=== PATIENT | female | born 1975 | race Caucasian/White ===

== ENCOUNTER 2016-03-06 08:40 | Emergency (ER) | payer OTHER ==
[2016-03-06 09:36] VITALS: TEMP 98.8
[2016-03-06] MEDS ORDERED: TDAP VACCINE 0.5 ML SUS IM ONE ×2 (09:54→09:55)
[2016-03-06 09:55] VITALS: RESP 16
[2016-03-06 13:56] VITALS: O2SAT 97
[2016-03-06 13:57] VITALS: BP 128/83; PULSE 65
== END 2016-03-06 10:03 | disposition home or self-care (01) | DRG 914 ==
LOC: ED 08:40
DX: S09.90XA Unspecified injury of head, initial encounter (principal); S50.312A Abrasion of left elbow, initial encounter; T14.8 Other injury of unspecified body region; W01.0XXA Fall on same level from slipping, tripping and stumbling without subsequent striking against object, initial encounter; Y99.0 Civilian activity done for income or pay
CPT/HCPCS: 90471; 90715; 99283